=== PATIENT | female | born 1975 | race Hispanic/Latino ===

== ENCOUNTER → 2025-04-17 | Emergency (ER) | payer SELFPAY ==
[~2025-04-17] VITALS: Ht 157.5 cm; Wt 77.1 kg
[~2025-04-17] MED LIST: ALBUHFA IH; LEVO750T68 PO
--- NOTE | 2025-04-17 17:14 | ERN ---
ED Note History of Present Illness Stated Complaint: FLU LIKE SYMPTOMS Chief Complaint: Flu Symptoms Time Seen by MD: 16:54 Dictation: PATIENT IS A 49-YEAR-OLD FEMALE HERE WITH HER DAUGHTER WITH COMPLAINTS OF HAVING NONPRODUCTIVE COUGH WITH MILD SOB FOR ONE MONTH. SHE ALSO HAS HAD LOW-GRADE FEVER NO CHILLS NO NAUSEA VOMITING NO DIARRHEA NO LOSS OF TASTE OR SMELL. SHE HAS A HISTORY OF CHRONIC BRONCHITIS HOWEVER HAS NOT SEEN A DOCTOR IN SEVERAL MONTHS BECAUSE SHE HAS NO INSURANCE. SHE RECENTLY WENT TO [facility] IN [place] WHERE SHE LIVED AND WAS DIAGNOSED WITH A URI WAS GIVEN AZITHROMYCIN. IN ADDITION SHE WAS GIVEN ALBUTEROL INHALER WHICH SHE HAS ALREADY USED UP. NO CHEST PAIN NO BACK Allergies: Coded Allergies: No Known Drug Allergies (Unverified Allergy, Unknown, 04/17/25) Past Medical History Past Medical History: Hypertension Surgical History: History: Not Applicable RN Note Reviewed/Agreed w/PFSH: Yes Review of System Dictation CONSTITUTIONAL: NEGATIVE EXCEPT FOR HPI FEVER HEAD/FACE: NEGATIVE EXCEPT FOR HPI EENT: NEGATIVE EXCEPT FOR HPI RESPIRATORY: NEGATIVE EXCEPT FOR HPI SOB/COUGH GASTROINTESTINAL/ABDOMINAL: NEGATIVE EXCEPT FOR HPI GENITOURINARY: NEGATIVE EXCEPT FOR HPI MUSCULOSKELETAL: NEGATIVE EXCEPT FOR HPI INTEGUMENTARY: NEGATIVE EXCEPT FOR HPI NEUROLOGICAL/PSYCH: NEGATIVE EXCEPT FOR HPI HEMATOLOGIC/LYMPHATIC: NEGATIVE EXCEPT FOR HPI ALL SYSTEMS NEGATIVE, EXCEPT NOTED ABOVE. 13 POINT REVIEW OF SYSTEMS ASSESSED AND ALL NEGATIVE EXCEPT FOR ABOVE. Initial Vital Sign VS Vital Signs Date Time Temp Pulse Resp B/P (MAP) Pulse Ox O2 Delivery O2 Flow Rate FiO2 04/17/25 16:53 100.0 85 18 127/58 95 0 Physical Exam Dictation VITAL SIGNS REVIEWED GENERAL APPEARANCE: ALERT, ORIENTED X 3, MILD ACUTE DISTRESS, WELL DEVELOPED, NOURISHED. OBESE HEAD AND FACE: NON-TRAUMATIC. EYES: PERRL, PINK CONJUNCTIVAS, EYELID NO TRAUMA, ANTERIOR CHAMBER WITH ARCUS SENILIS. EARS: PINNAS INTACT AND NO SIGNS OF TRAUMA OR ERYTHEMA EAR CANALS CLEAR AND NO DISCHARGE TM NO ERYTHEMA NOSE: NO DISCHARGE, NO BLEEDING. OROPHARYNX: MOUTH NORMAL, TONGUE PINK, PHARYNX CLEAR,NO ERYTHEMA, TONSILS NO EXUDATES, NO ABSCESSES NOTED, MUCOUS MEMBRANE MOIST NECK: SUPPLE, NON-TENDER, NO THYROMEGALY, NO MASSES, NO JVD, NO BRUITS BREAST:DEFERRED CHEST:NO TENDERNESS, NO CREPITUS, NO PARADOXICAL MOVEMENT, NO RETRACTIONS LUNGS:CLEAR, WELL-VENTILATED, SYMMETRIC, NO RALES, NO WHEEZING, NO RHONCHI, NO STRIDOR, GOOD BREATH SOUNDS BILATERALLY DRY COUGH NOTED HEART: REGULAR RATE, REGULAR RHYTHM, NO MURMUR, NO GALLOPS VASCULAR: NO PERIPHERAL EDEMA, ABDOMEN: SOFT, POSITIVE BOWEL SOUNDS, NONDISTENDED, NO GUARDING, NONTENDER, NO REBOUND, NO MASSES NO HEPATOMEGALY, NO SPLENOMEGALY, NO ACOSTA'S SIGN, NO HERNIAS. RECTAL: DEFERRED GENITAL: DEFERRED NEUROLOGICAL: NORMAL SPEECH, MOTOR FUNCTION INTACT, SENSORY FUNCTION INTACT MUSCULOSKELETAL: NECK NONTENDER, FULL RANGE OF MOTION, BACK NONTENDER, FULL RANGE OF MOTION, EXTREMITIES: NONTENDER, FULL RANGE OF MOTION SKIN: COLOR PINK, DRY, NO TURGOR, NO RASH, NO LACERATIONS, NO ABRASIONS, NO CONTUSIONS. LYMPHATIC: DEFERRED Results (Laboratory/Radiology) Laboratory/Radiology Laboratory Tests Test 04/17/25 16:55 Influenza Type A Antigen Negative For Type A Influenza Type B Antigen Negative For Type B SARS-CoV-2 Antigen (Rapid) PRESUMPTIVE NEGATIVE Group A Streptococcus Rapid negative (NEGATIVE) Labs Reviewed?: Yes ED Course ED Course Orders Procedure Category Date Status Time Covid19 (Sars Antigen LAB 04/17/25 Complete Rapid) 17:02 Influenza Type A & B, LAB 04/17/25 Complete Rapid 17:02 Rapid (Group A Strep) LAB 04/17/25 Complete 17:02 Acetaminophen 500mg PHA 04/17/25 Complete Tab (Tylenol 500mg T 17:30 Dexamethasone 4mg/Ml PHA 04/17/25 Complete 1ml Vial (Dexametha 17:30 Chest 1vw RAD 04/17/25 Taken 17:12 Current Medications Medications (Trade) Dose Ordered Sig/Eddy Route PRN Reason Start Time Stop Time Status Last Admin Dose Admin Acetaminophen (TYLenol 500MG TAB) 1,000 mg ONCE ONCE PO 04/17/25 17:30 04/17/25 17:31 DC 04/17/25 17:31 Dexamethasone Sodium Phosphate (dexaMETHasone 4MG/ML 1ML VIAL) 8 mg ONCE ONCE IM 04/17/25 17:30 04/17/25 17:31 DC 04/17/25 17:32 Vital Signs Date Time Temp Pulse Resp B/P (MAP) Pulse Ox O2 Delivery O2 Flow Rate FiO2 04/17/25 17:31 100.9 04/17/25 16:53 100.0 85 18 127/58 95 0 1800/PATIENT HAS A LEFT LOWER LOBE PNEUMONIA. SHE WILL BE LOADED WITH LEVAQUIN 500 MG P.O. NOW BE DISCHARGED HOME WITH ALBUTEROL AND LEVAQUIN TOLD SEE HER PRIMARY CARE DOCTOR IN THE NEXT 1-2 DAYS Medical Decision Making MDM MEDICAL DECISION-MAKING BASED ON CHEST X-RAY, SWABS FOR FLU COVID AND STREP. ALL SWABS NEGATIVE PATIENT HAS A LEFT LOWER LOBE PNEUMONIA GIVEN LEVAQUIN 500 MG P.O. NOW DISCHARGED HOME WITH LEVAQUIN 750 AND ALBUTEROL TOLD FOLLOW UP WITH HER PRIMARY CARE DOCTOR IN [facility] IN THE NEXT 2-3 DAYS DX & DISP Disposition: Discharge Departure Impression: Primary Impression: Left lower lobe pneumonia Additional Impressions: Dyspnea on exertion, Cough Condition: Stable Scripts Albuterol Sulfate (Ventolin Hfa/Proventil Hfa/Proair Hfa) 90 Mcg Puff 2 PUFF IH Q4H for WHEEZING, #1 INHALER 0 Refills Prov: PATY LIAO NP 04/17/25 Levofloxacin (Levaquin 750Mg Tabs) 750 Mg Tablet 750 MG PO DAILY for 7 Days, #7 TAB 0 Refills Prov: PATY LIAO PIPE BLANKS CUT OFF SAW OPERATOR 04/17/25 Additional Instructions: FOLLOW-UP WITH PRIMARY CARE PROVIDER IN 1 TO 2 DAYS. TAKE MEDICATIONS DIRECTED HERE IN THE EMERGENCY ROOM. OKAY TO CONTINUE HOME MEDICATIONS UNLESS OTHERWISE DISCUSSED DURING YOUR VISIT IN THE EMERGENCY ROOM TODAY. RETURN TO YOUR NEAREST EMERGENCY ROOM IF SYMPTOMS WORSEN OR IF THERE IS NO IMPROVEMENT. CALL 911 IF YOU NEED IMMEDIATE ASSISTANCE. TAKE TYLENOL OR MOTRIN [id number] NEEDED AND IF NO CONTRAINDICATIONS ARE PRESENT. INCREASE ORAL HYDRATION. A WOUND CULTURE OR URINE CULTURE WAS ORDERED HERE IN THE EMERGENCY ROOM DEPARTMENT PLEASE FOLLOW-UP WITH PRIMARY CARE PROVIDER AND ADVISE THEM TO GET REPEAT PORTS FROM OUR FACILITY. IF YOU HAD ANY ARLENE WRAP/SPLINTS THAT WERE APPLIED HERE, PLEASE DO NOT REMOVE THEM UNTIL YOU SEE YOUR PRIMARY CARE OR SPECIALTY. TAKE LEVAQUIN DIRECTED DAILY STARTING TOMORROW UNTIL GONE. USE ALBUTEROL INHALER EVERY 4 HOURS WHILE AWAKE FOR THE NEXT THREE DAYS. SEE YOUR PRIMARY CARE DOCTOR IN [facility] IN THE NEXT 1-2 DAYS. Referrals: SELF,REFERRAL (PCP) Time of Disposition: 18:02 I have reviewed the case, and I agree with, Diagnosis and Plan PATY LIAO NP Apr 17, 2025 17:14
[2025-04-17 17:21] LABS: RAPID GROUP A STREP negative (NEGATIVE)
[2025-04-17 17:29] LABS: INFLUENZA TYPE A Negative For Type A (NEGATIVE); INFLUENZA TYPE B Negative For Type B (NEGATIVE)
[2025-04-17 17:30] LABS: COVID19 (SARS ANTIGEN RAPID) PRESUMPTIVE NEGATIVE (NEGATIVE)
[2025-04-17 18:15] VITALS: TEMP 98.8
[2025-04-17 18:19] VITALS: BP 132/52; PULSE 75; RESP 16; TEMP 97.8; O2SAT 98
--- NOTE | 2025-04-17 18:53 | HMCIMG ---
EXAM: CR Chest, 1 View. CLINICAL HISTORY: NONPRODUCTIVE COUGH WITH THE SOB ONE MONTH COMPARISON: None provided. FINDINGS: Left lower and right upper lobe pneumonia. No pleural effusion or pneumothorax. Heart size pulmonary vessels are within normal limits. IMPRESSION: 1. Left lower and right upper lobe pneumonia. /Amo
== END ==
LOC: EDH 16:49
DX: J18.9 Pneumonia, unspecified organism (principal); R06.09 Other forms of dyspnea; R05.9 Cough, unspecified; I10 Essential (primary) hypertension; Z20.822 Contact with and (suspected) exposure to COVID-19
CPT/HCPCS: 99284; 71045; 87426; 87880; 87804 ×2; 96372; J1100